=== PATIENT | female | born 1980 | race American Indian/Alaskan Native ===

== ENCOUNTER 2019-04-21 07:45 | Emergency (ER) | payer SELFPAY ==
[2019-04-21 07:52] VITALS: BP 135/86
--- NOTE | 2019-04-21 08:47 | Emergency Department Report ---
ED General Adult HPI - General Chief complaint: Urogenital-Female Stated complaint: TAMPON STUCK IN VAGINA Time Seen by Provider: 04/21/19 08:27 Source: patient Mode of arrival: Ambulatory Limitations: No Limitations - History of Present Illness Initial comments: Patient is 39 years old female with no significant past medical history. Patient presented to the ER stating that she think that she had a tampon stuck in her vagina for the last 2 days. Patient denied any vaginal discharge or foul smelling odor. She also denied any fever or chills. - Related Data Allergies Allergy/AdvReac Type Severity Reaction Status Date / Time No Known Allergies Allergy Unverified 04/21/19 07:48 ED Review of Systems ROS: Stated complaint: TAMPON STUCK IN VAGINA Other details as noted in HPI Constitutional: denies: chills, fever Respiratory: denies: cough, shortness of breath, SOB with exertion, SOB at rest, wheezing Cardiovascular: denies: chest pain, palpitations, dyspnea on exertion, orthopnea Gastrointestinal: denies: abdominal pain, nausea, vomiting ED Past Medical Hx - Past Medical History Hx Hypertension: Yes Hx Diabetes: Yes Hx Psychiatric Treatment: (depression) Additional medical history: right knee replacement - Surgical History Past Surgical History?: Yes Hx Cholecystectomy: Yes - Social History Smoking Status: Current Every Day Smoker Substance Use Type: Alcohol ED Physical Exam - General Limitations: No Limitations General appearance: alert, in no apparent distress - Eye Eye exam: Present: normal appearance - ENT ENT exam: Present: normal exam, normal orophraynx, mucous membranes moist - Neck Neck exam: Present: normal inspection. Absent: tenderness, meningismus - Respiratory Respiratory exam: Present: normal lung sounds bilaterally - Cardiovascular Cardiovascular Exam: Present: regular rate, normal rhythm, normal heart sounds - GI/Abdominal GI/Abdominal exam: Present: soft. Absent: distended, tenderness, guarding - External exam: Present: normal external exam. Absent: erythema, swelling, lesions, lacerations, ecchymosis Speculum exam: Present: normal speculum exam, other (cervix is hard on palpation.). Absent: erythema, vaginal discharge, cervical discharge, vaginal bleeding, foreign body - Extremities Exam Extremities exam: Present: normal inspection, full ROM, normal capillary refill. Absent: pedal edema, calf tenderness - Back Exam Back exam: Present: normal inspection - Neurological Exam Neurological exam: Present: alert, oriented X3, CN II-XII intact, normal gait - Skin Skin exam: Present: warm, intact, normal color ED Course Vital Signs 04/21/19 07:48 Temperature 98.2 F Pulse Rate 77 Respiratory 20 Rate Blood Pressure 135/86 O2 Sat by Pulse 100 Oximetry ED Medical Decision Making - Medical Decision Making Patient is 39 years old female with no significant past medical history. Patient presented to the ER stating that she think that she had a tampon stuck in her vagina for the last 2 days. Patient denied any vaginal discharge or foul smelling odor. She also denied any fever or chills. Under speculum exam, no evidence of town bones or foreign bodies. Cervix is hard on palpation raising possibility of cervical mass or cervical cancer. Patient informed about the speculum finding and given [facility] to follow-up for further testing. Patient and her understood the instruction very well advised to return to the ER if she developed any new symptoms. Critical care attestation.: If time is entered above; I have spent that time in minutes in the direct care of this critically ill patient, excluding procedure time. ED Disposition Clinical Impression: Vaginal pain Disposition: DC-01 TO HOME OR SELFCARE Is pt being admited?: No Condition: Stable Instructions: Pap Smear (ED) Referrals: [facility] [Provider Group] - 3-5 Days
== END 2019-04-21 09:21 | disposition home or self-care (01) ==
LOC: ED 07:45
DX: R10.2 Pelvic and perineal pain (principal); I10 Essential (primary) hypertension; E11.9 Type 2 diabetes mellitus without complications; F32.9 Major depressive disorder, single episode, unspecified; F17.200 Nicotine dependence, unspecified, uncomplicated; Z90.49 Acquired absence of other specified parts of digestive tract

== ENCOUNTER 2019-07-28 02:20 | Emergency (ER) | payer SELFPAY ==
[2019-07-28] MEDS ORDERED: IBUPROFEN 800 MG TAB PO ONE (06:32)
--- NOTE | 2019-07-28 06:39 | Emergency Department Report ---
- General Chief Complaint: Upper Respiratory Infection Stated Complaint: RT KNEE PAIN/HEAD COLD,STUFF NOSE Time Seen by Provider: 07/28/19 06:32 Source: patient Mode of arrival: Ambulatory Limitations: No Limitations - History of Present Illness Initial Comments: Ms Agee is a 39 y/o aaf who presents for URI, and chronic knee pain. pt denies fever or chills no fall or injury, pt denies sob , cp, no n/v pt is ambulatory to baseline per patient. MD Complaint: rhinorrhea, nasal congestion Onset/Timin -: week(s) Severity: moderate Severity scale (0 -10): 3 Consistency: intermittent Improves With: OTC nasal spray Worsens With: activity, other (environmental exposure ) Context: sick contacts (family members with colds ) Associated Symptoms: rhinorrhea, nasal congestion, cough - Related Data Previous Rx's Medication Instructions Recorded Last Taken Type Fluticasone [Flonase] 1 spray NS QDAY #1 bottle 07/28/19 Unknown Rx Ibuprofen [Motrin 800 MG tab] 800 mg PO Q8HR PRN #30 tablet 07/28/19 Unknown Rx Lisinopril [Zestril TAB] 20 mg PO QDAY #30 tablet 07/28/19 Unknown Rx Loratadine 10 mg PO DAILY #30 tablet 07/28/19 Unknown Rx Allergies Allergy/AdvReac Type Severity Reaction Status Date / Time No Known Allergies Allergy Unverified 04/21/19 07:48 ED Review of Systems ROS: Stated complaint: RT KNEE PAIN/HEAD COLD,STUFF NOSE Other details as noted in HPI Constitutional: no symptoms reported Eyes: denies: eye pain, eye discharge, vision change ENT: congestion Respiratory: cough. denies: shortness of breath, wheezing Cardiovascular: denies: chest pain, palpitations Endocrine: no symptoms reported Gastrointestinal: denies: abdominal pain, nausea, vomiting, diarrhea Genitourinary: denies: urgency, dysuria, discharge Musculoskeletal: denies: back pain, joint swelling, arthralgia Skin: denies: rash, lesions Neurological: denies: headache, weakness, paresthesias, vertigo Psychiatric: denies: anxiety, depression Hematological/Lymphatic: denies: easy bleeding, easy bruising ED Past Medical Hx - Past Medical History Previous Medical History?: Yes Hx Hypertension: Yes Hx Diabetes: Yes Hx Psychiatric Treatment: (depression) Additional medical history: right knee replacement - Surgical History Past Surgical History?: Yes Hx Cholecystectomy: Yes - Social History Smoking Status: Current Every Day Smoker Substance Use Type: None - Medications Home Medications: Home Medications Medication Instructions Recorded Confirmed Last Taken Type Fluticasone [Flonase] 1 spray NS QDAY #1 bottle 07/28/19 Unknown Rx Ibuprofen [Motrin 800 MG tab] 800 mg PO Q8HR PRN #30 tablet 07/28/19 Unknown Rx Lisinopril [Zestril TAB] 20 mg PO QDAY #30 tablet 07/28/19 Unknown Rx Loratadine 10 mg PO DAILY #30 tablet 07/28/19 Unknown Rx ED Physical Exam - General Limitations: No Limitations General appearance: alert, in no apparent distress - Head Head exam: Present: atraumatic, normocephalic - Eye Eye exam: Present: normal appearance, PERRL, EOMI Pupils: Present: normal accommodation - ENT ENT exam: Present: mucous membranes moist, TM's normal bilaterally, normal external ear exam - Expanded ENT Exam Expanded Ear exam: Present: normal external inspection Throat exam: Positive: normal inspection, other (clear post nasal drip, no stridor no swelling no exudate no lesions ). Negative: tonsillar erythema, tonsillomegaly, tonsillar exudate, R peritonsillar mass, L peritonsillar mass - Neck Neck exam: Present: normal inspection, full ROM. Absent: tenderness, meningismus, lymphadenopathy, thyromegaly - Respiratory Respiratory exam: Present: normal lung sounds bilaterally. Absent: respiratory distress, wheezes, rales, rhonchi, stridor, chest wall tenderness - Cardiovascular Cardiovascular Exam: Present: regular rate, normal rhythm, normal heart sounds. Absent: systolic murmur, diastolic murmur, rubs, gallop - GI/Abdominal GI/Abdominal exam: Present: soft, normal bowel sounds. Absent: tenderness - Rectal Rectal exam: Present: deferred - Extremities Exam Extremities exam: Present: normal inspection, full ROM. Absent: tenderness - Expanded Lower Extremity Exam Right Knee exam: Present: full ROM, swelling, full knee extension. Absent: tenderness, abrasion, laceration, ecchymosis, deformity, crepidus, dislocation, erythema, effusion, pain w/ pronation/supination, posterior draw sign, pain /laxity with valgus, pain/laxity with varus Lower Leg exam: Present: full ROM. Absent: tenderness Ankle exam: Present: full ROM. Absent: tenderness, swelling Foot/Toe exam: Present: full ROM. Absent: tenderness, swelling Neuro vascular tendon exam: Absent: pulse deficit, motor deficit, sensory de ficit, tendon deficit Gait: Positive: observed and normal - Back Exam Back exam: Present: normal inspection, full ROM. Absent: tenderness - Neurological Exam Neurological exam: Present: alert, oriented X3, CN II-XII intact, normal gait, reflexes normal. Absent: motor sensory deficit - Psychiatric Psychiatric exam: Present: normal affect, normal mood - Skin Skin exam: Present: warm, dry, intact, normal color. Absent: rash ED Course Vital Signs 07/28/19 02:41 Temperature 98.1 F Pulse Rate 85 Respiratory 20 Rate Blood Pressure 122/73 O2 Sat by Pulse 97 Oximetry ED Medical Decision Making - Medical Decision Making this is a straight forward URI, and chronic knee pain no acute injury. plan: ibuprofen prn, flonase loratadine, follow up with pcp in 2-3 days. pt given referral to [facility] will follow up with same in 2-3 days. pt verbalized agreement and understanding of same. dc'd to home in stable condition at this time. Critical care attestation.: If time is entered above; I have spent that time in minutes in the direct care of this critically ill patient, excluding procedure time. ED Disposition Clinical Impression: Upper respiratory infection Qualifiers: URI type: unspecified URI Qualified Code(s): J06.9 - Acute upper respiratory infection, unspecified Chronic knee pain Qualifiers: Laterality: right Qualified Code(s): M25.561 - Pain in right knee; G89.29 - Other chronic pain Disposition: DC-01 TO HOME OR SELFCARE Is pt being admited?: No Does the pt Need Aspirin: No Condition: Stable Instructions: Arthralgia (ED), Upper Respiratory Infection (ED) Prescriptions: Fluticasone [Flonase] 1 spray NS QDAY #1 bottle Loratadine 10 mg PO DAILY #30 tablet Ibuprofen [Motrin 800 MG tab] 800 mg PO Q8HR PRN #30 tablet PRN Reason: pain Lisinopril [Zestril TAB] 20 mg PO QDAY #30 tablet Referrals: [facility] [Outside] - 3-5 Days Forms: Work/School Release Form(ED) Time of Disposition: 06:46
[2019-07-28 07:09] VITALS: BP 124/78
== END 2019-07-28 07:09 | disposition home or self-care (01) ==
LOC: ED 02:20
DX: J06.9 Acute upper respiratory infection, unspecified (principal); G89.29 Other chronic pain; M25.561 Pain in right knee; I10 Essential (primary) hypertension; E11.9 Type 2 diabetes mellitus without complications; F32.9 Major depressive disorder, single episode, unspecified; F17.200 Nicotine dependence, unspecified, uncomplicated; Z90.49 Acquired absence of other specified parts of digestive tract; Z79.899 Other long term (current) drug therapy